=== PATIENT | female | born 1990 | race Caucasian/White ===

== ENCOUNTER 2017-01-10 15:36 | Emergency (ER) | payer MEDICAID ==
[2017-01-10 15:59] VITALS: BP 114/78
--- NOTE | 2017-01-10 16:31 | EDM.PDOC ---
ED HPI Skin/Rash - General Chief Complaint: Skin Complaint Stated Complaint: Skin blisters Time Seen by Provider: 01/10/17 16:10 Source: Reports: Patient, RN notes reviewed History Limitations: Reports: No limitations - History of Present Illness INITIAL COMMENTS - FREE TEXT/NARRATIVE: 26 year old female presents to the ED with swelling of the lower lip and blisters. The lip is very painful. The symptoms started yesterday. She has a history of cold sores and has been using abreva with no relief. She also reports spending a lot of time in the sun and wind over the past couple days. There is no involvement of the upper lip. The sores seemed to start on one side of the lip and travel across to the other side. No fever or chills. No recent illness or additional concerns. - Related Data Allergies Allergy/AdvReac Type Severity Reaction Status Date / Time No Known Allergies Allergy Verified 01/10/17 15:56 Home Meds: Ambulatory Orders Medication Instructions Recorded Confirmed Cholecalciferol (Vitamin D3) 5,000 unit PO DAILY 01/10/17 01/10/17 [Vitamin D3] Mupirocin Calcium [Bactroban] 1 applic TP TID #1 tube 01/10/17 Naproxen 500 mg PO BID PRN #20 tablet 01/10/17 Sertraline HCl [Zoloft] 150 mg PO DAILY 01/10/17 01/10/17 valACYclovir [Valtrex] 2,000 mg PO Q12H #4 tab 01/10/17 Past Medical History HEENT History: Reports: Impaired vision Other HEENT History: wears glasses Musculoskeletal History: Reports: Other (see below) Other Musculoskeletal History: MS Neurological History: Reports: MS Psychiatric History: Reports: Depression Social & Family History - Family History Family Medical History: Noncontributory - Tobacco Use Smoking Status *Q: Current Every Day Smoker Years of Tobacco use: 10 Packs/Tins Daily: 0.5 - Caffeine Use Caffeine Use: Reports: Coffee, Soda - Alcohol Use Days Per Week of Alcohol Use: 0 - Recreational Drug Use Recreational Drug Use: Yes Drug Use in Last 12 Months: Yes Recreational Drug Type: Reports: Methamphetamine Recreational Drug Use Frequency: Socially Recreational Drug Last Use: Nov.08 ED ROS GENERAL - Review of Systems Review Of Systems: See Below Constitutional: Reports: no symptoms. Denies: fever, chills HEENT: Reports: Other (lower lip swelling and blisters) Respiratory: Reports: No Symptoms. Denies: Cough Cardiovascular: Reports: No symptoms ED EXAM, SKIN/RASH Exam: See Below Exam Limited By: No limitations General Appearance: alert, WD/WN, no apparent distress Ears: normal external exam, normal canal, hearing grossly normal, normal TMs Nose: normal inspection, normal mucosa Throat/Mouth: Normal oropharynx, Other (lower lip is erythematous with several fluid filled blisters noted) Head: atraumatic, normocephalic Neck: normal inspection, supple, non-tender, full range of motion. No: lymphadenopathy (L), lymphadenopathy (R) Respiratory/Chest: no respiratory distress, lungs clear Cardiovascular: regular rate, rhythm Neurological: alert, normal cognition Course - Vital Signs Last Recorded V/S: Last Vital Signs Temp 97.3 F 01/10/17 15:57 Pulse 83 01/10/17 15:57 Resp 16 01/10/17 15:57 BP 114/78 01/10/17 15:57 Pulse Ox 100 01/10/17 15:57 Departure - Departure Time of Disposition: 16:24 Disposition: Home, Self-Care 01 Condition: good Clinical Impression: Cold sore Prescriptions: Mupirocin Calcium [Bactroban] 1 applic TP TID #1 tube Naproxen 500 mg PO BID PRN #20 tablet PRN Reason: Pain valACYclovir [Valtrex] 2,000 mg PO Q12H #4 tab Instructions: Cold Sore Referrals: Iona Hernandez NP [Primary Care Provider] - Forms: ED Department Discharge Additional Instructions: Follow-up with Allyn Hernandez next week if not improved Continue Abreva Bactroban ointment 3 times a day Cold compresses as tolerated Naproxyn 500mg twice a day as needed for pain May also use Tylenol 1000mg every 8 hours in addition to Naproxyn Valacyclovir 2000mg every 12 hours for two doses.
== END 2017-01-10 16:40 | disposition home or self-care (01) ==
LOC: JD.ED 15:36
DX: S00.521A Blister (nonthermal) of lip, initial encounter (principal); F32.9 Major depressive disorder, single episode, unspecified; F17.210 Nicotine dependence, cigarettes, uncomplicated; X31.XXXA Exposure to excessive natural cold, initial encounter
CPT/HCPCS: 99282; 99283

== ENCOUNTER 2017-01-28 12:31 | Emergency (ER) | payer MEDICAID ==
[2017-01-28] MEDS ORDERED: Sodium Chloride 0.9% 10 ML Syringe FLUSH PRN (13:09)
--- NOTE | 2017-01-28 13:13 | EDM.PDOC ---
ED HPI NEURO - General Chief Complaint: Neurological Problem Stated Complaint: MS EPISODE- CAN'T FEEL LEGS Time Seen by Provider: 01/28/17 12:52 Source of Information: Reports: Patient History Limitations: Reports: No limitations - History of Present Illness INITIAL COMMENTS - FREE TEXT/NARRATIVE: Patient is a 26-year-old female with a history of MS and has not been taking any medications for the past 2 years. Patient states this morning she awoke at approximately 10:30 he noticed numbness to the anterior aspect of her upper and lower legs involving her feet bilaterally. States she is able to walk with out any help but notes the right foot is slightly turning inward. States last time she had a flare up was approximately one year ago. Patient received IV Solu- Medrol in the ED and outpatient. States she's had a mild headache with some nausea for the past few days. Patient was outside yesterday throwing tires for extended period of time. Patient states she did get hot and believes this may have aggravated her MS. She did see her neurologist one month ago and had MRI and antibodies recheck this past Saturday to which she can start taking her MS medications again. Of note patient does have a history of IV meth use. She was hospitalized approximately 3 months ago for MRSA infection. Patient states she's been clean for the past 8 to 12 days. She is being evaluated in [place] at the [facility] for therapy this coming Saturday. Patient does have chronic blurriness to her left eye and denies recent changes. She denies any fever, chest pain, shortness breath, vomiting, abdominal pain, pain with urination, or any additional complaints. Timing/Duration: Reports: Constant, Getting worse Location (Neuro Complaint): Reports: lower extremity, left, lower extremity, right Quality (Neuro Complaint): Reports: numbness, tingling, weakness, altered gait. Denies: altered sensation, altered speech Severity: mild Improves with: Reports: Medication (solumedrol) Worsens with: Reports: Other (heat exacerbation) Associated Symptoms: Reports: weakness, nausea/vomiting (mild nausea). Denies: shortness of breath, chest pain, cough, sputum, fever/chills, loss of appetite Treatments BAGGAGE INSPECTOR: Reports: Other (see below) (none stated) - Related Data Allergies/ADRs: Allergies Allergy/AdvReac Type Severity Reaction Status Date / Time No Known Allergies Allergy Verified 01/28/17 12:42 Home Meds: Home Meds Cholecalciferol (Vitamin D3) [Vitamin D3] 5,000 unit PO DAILY 01/10/17 [History] Sertraline HCl [Zoloft] 150 mg PO DAILY 01/10/17 [History] Past Medical History HEENT History: Reports: Impaired vision Other HEENT History: wears glasses Musculoskeletal History: Reports: Other (see below) Other Musculoskeletal History: MS Neurological History: Reports: MS Psychiatric History: Reports: Depression Social & Family History - Family History Family Medical History: Noncontributory - Tobacco Use Smoking Status *Q: Current Every Day Smoker Years of Tobacco use: 10 Packs/Tins Daily: 0.5 - Caffeine Use Caffeine Use: Reports: Coffee, Soda - Alcohol Use Days Per Week of Alcohol Use: 0 - Recreational Drug Use Recreational Drug Use: Yes Drug Use in Last 12 Months: Yes Recreational Drug Type: Reports: Marijuana/Hashish Recreational Drug Use Frequency: Socially Recreational Drug Last Use: Nov.08 ED ROS GENERAL - Review of Systems Review Of Systems: See Below Constitutional: Reports: weakness. Denies: fever, chills, malaise, fatigue, decreased appetite HEENT: Reports: No symptoms Respiratory: Reports: No Symptoms Cardiovascular: Reports: No symptoms GI/Abdominal: Reports: Nausea. Denies: Abdominal pain, Constipation, Diarrhea, Distension, Flatus, Vomiting : Reports: no symptoms Musculoskeletal: Reports: no symptoms Neurological: Reports: Numbness, Tingling (lower extremities bilaterally), Weakness, Gait Disturbance ED EXAM, NEURO - Physical Exam Exam: See Below Exam Limited By: No limitations General Appearance: alert, WD/WN, no apparent distress Eye Exam: bilateral eye: EOMI, PERRL Ears: hearing grossly normal Nose: normal inspection Throat/Mouth: Normal inspection, Normal oropharynx, Normal voice, No airway compromise Head Exam: atraumatic, normocephalic Neck: normal inspection, supple, non-tender, full range of motion. No: lymphadenopathy (L), lymphadenopathy (R) Respiratory/Chest: no respiratory distress, lungs clear, normal breath sounds, no accessory muscle use, chest non-tender Cardiovascular: normal peripheral pulses, regular rate, rhythm, no murmur GI/Abdominal: normal bowel sounds, soft, non tender, no organomegaly, no distention, no abnormal bruit, no mass Neurological: alert, normal mood/affect, CN II-XII intact, no motor/sensory deficits, oriented x 3, other (weakness noted bilaterally dorsiflexion/plantar flexion, flexion of lower legs. ). No: normal dorsiflexion, normal plantar flexion Back Exam: normal inspection Extremities: normal inspection, normal range of motion, non-tender, no pedal edema, normal capillary refill Psychiatric: normal affect, normal mood Skin Exam: Warm, Dry, Intact, Normal color, No rash Course - Vital Signs Last Recorded V/S: Last Vital Signs Temp 97.9 F 01/28/17 12:43 Pulse 77 01/28/17 16:45 Resp 18 01/28/17 16:45 BP 115/66 01/28/17 16:45 Pulse Ox 100 01/28/17 16:45 - Orders/Labs/Meds Orders: Active Orders 24 hr Category Date Time Status Peripheral IV Care [RC] . DIRECTED Care 01/28/17 13:09 Active Peripheral IV Insertion Adult [OM.PC] Stat Oth 01/28/17 13:09 Ordered Labs: Laboratory Tests 01/28/17 01/28/17 01/28/17 Range/Units 13:47 13:47 13:47 WBC 6.90 (3.98-10.04) K/mm3 RBC 4.94 (3.98-5.22) M/mm3 Hgb 14.6 (11.2-15.7) gm/L Hct 43.7 (34.1-44.9) % MCV 88.5 (79.4-94.8) fl MCH 29.6 (25.6-32.2) pg MCHC 33.4 (32.2-35.5) g/dl RDW Std Deviation 43.4 (36.4-46.3) fL Plt Count 281 (182-369) K/mm3 MPV 10.8 (9.4-12.3) fl Neut % (Auto) 54.0 (34.0-71.1) % Lymph % (Auto) 33.9 (19.3-51.7) % [place] % (Auto) 9.9 (4.7-12.5) % Eos % (Auto) 1.7 (0.7-5.8) Baso % (Auto) 0.4 (0.1-1.2) % Neut # (Auto) 3.72 (1.56-6.13) K/mm3 Lymph # (Auto) 2.34 (1.18-3.74) K/mm3 [place] # (Auto) 0.68 H (0.24-0.36) K/mm3 Eos # (Auto) 0.12 (0.04-0.36) K/mm3 Baso # (Auto) 0.03 (0.01-0.08) K/mm3 Sodium 138 (136-145) mEq/L Potassium 4.1 (3.5-5.1) mEq/L Chloride 104 (98-107) mEq/L Carbon Dioxide 27 (21-32) mEq/L Anion Gap 11.1 (5-15) BUN 11 (7-18) mg/dL Creatinine 0.9 (0.55-1.02) mg/dL Est Cr Clr Drug Dosing TNP Estimated GFR (MDRD) > 60 (>60) mL/min BUN/Creatinine Ratio 12.2 L (14-18) Glucose 91 (74-106) mg/dL Calcium 9.0 (8.5-10.1) mg/dL Total Bilirubin 0.3 (0.2-1.0) mg/dL AST 16 (15-37) U/L ALT 18 (14-59) U/L Alkaline Phosphatase 86 (46-116) U/L Total Protein 7.1 (6.4-8.2) g/dl Albumin 3.8 (3.4-5.0) g/dl Globulin 3.3 gm/dL Albumin/Globulin Ratio 1.2 (1-2) HCG, Qual Negative (NEGATIVE) Urine Color (Yellow) Urine Appearance (Clear) Urine pH (5.0-8.0) Ur Specific [place] (1.005-1.030) Urine Protein (Negative) Urine Glucose (UA) (Negative) Urine Ketones (Negative) Urine Occult Blood (Negative) Urine Nitrite (Negative) Urine Bilirubin (Negative) Urine Urobilinogen (0.2-1.0) Ur Leukocyte Esterase (Negative) Urine RBC (0-5) /hpf Urine WBC (0-5) /hpf Ur Epithelial Cells Ur Squamous Epith Cells (0-5) /hpf Urine Bacteria (FEW) /hpf Urine Mucus (FEW) /hpf Urine Opiates Screen (NEGATIVE) Ur Buprenorphine Scrn (NEGATIVE) Ur Oxycodone Screen (NEGATIVE) Urine Methadone Screen (NEGATIVE) Ur Propoxyphene Screen (NEGATIVE) Ur Barbiturates Screen (NEGATIVE) Ur Tricyclics Screen (NEGATIVE) Ur Phencyclidine Scrn (NEGATIVE) Ur Amphetamine Screen (NEGATIVE) U Methamphetamines Scrn (NEGATIVE) U Benzodiazepines Scrn (NEGATIVE) U Cocaine Metab Screen (NEGATIVE) U Marijuana (THC) Screen (NEGATIVE) 01/28/17 01/28/17 Range/Units 13:55 13:55 WBC (3.98-10.04) K/mm3 RBC (3.98-5.22) M/mm3 Hgb (11.2-15.7) gm/L Hct (34.1-44.9) % MCV (79.4-94.8) fl MCH (25.6-32.2) pg MCHC (32.2-35.5) g/dl RDW Std Deviation (36.4-46.3) fL Plt Count (182-369) K/mm3 MPV (9.4-12.3) fl Neut % (Auto) (34.0-71.1) % Lymph % (Auto) (19.3-51.7) % [place] % (Auto) (4.7-12.5) % Eos % (Auto) (0.7-5.8) Baso % (Auto) (0.1-1.2) % Neut # (Auto) (1.56-6.13) K/mm3 Lymph # (Auto) (1.18-3.74) K/mm3 [place] # (Auto) (0.24-0.36) K/mm3 Eos # (Auto) (0.04-0.36) K/mm3 Baso # (Auto) (0.01-0.08) K/mm3 Sodium (136-145) mEq/L Potassium (3.5-5.1) mEq/L Chloride (98-107) mEq/L Carbon Dioxide (21-32) mEq/L Anion Gap (5-15) BUN (7-18) mg/dL Creatinine (0.55-1.02) mg/dL Est Cr Clr Drug Dosing Estimated GFR (MDRD) (>60) mL/min BUN/Creatinine Ratio (14-18) Glucose (74-106) mg/dL Calcium (8.5-10.1) mg/dL Total Bilirubin (0.2-1.0) mg/dL AST (15-37) U/L ALT (14-59) U/L Alkaline Phosphatase (46-116) U/L Total Protein (6.4-8.2) g/dl Albumin (3.4-5.0) g/dl Globulin gm/dL Albumin/Globulin Ratio (1-2) HCG, Qual (NEGATIVE) Urine Color Light yellow (Yellow) Urine Appearance Clear (Clear) Urine pH 7.0 (5.0-8.0) Ur Specific [place] 1.015 (1.005-1.030) Urine Protein Negative (Negative) Urine Glucose (UA) Negative (Negative) Urine Ketones Negative (Negative) Urine Occult Blood Negative (Negative) Urine Nitrite Negative (Negative) Urine Bilirubin Negative (Negative) Urine Urobilinogen 0.2 (0.2-1.0) Ur Leukocyte Esterase Negative (Negative) Urine RBC Not seen (0-5) /hpf Urine WBC 0-5 (0-5) /hpf Ur Epithelial Cells Not Reportable Ur Squamous Epith Cells 5-10 H (0-5) /hpf Urine Bacteria Few (FEW) /hpf Urine Mucus Not seen (FEW) /hpf Urine Opiates Screen Negative (NEGATIVE) Ur Buprenorphine Scrn Negative (NEGATIVE) Ur Oxycodone Screen Negative (NEGATIVE) Urine Methadone Screen Negative (NEGATIVE) Ur Propoxyphene Screen Negative (NEGATIVE) Ur Barbiturates Screen Negative (NEGATIVE) Ur Tricyclics Screen Negative (NEGATIVE) Ur Phencyclidine Scrn Negative (NEGATIVE) Ur Amphetamine Screen Presumptive positive H (NEGATIVE) U Methamphetamines Scrn Presumptive positive H (NEGATIVE) U Benzodiazepines Scrn Negative (NEGATIVE) U Cocaine Metab Screen Negative (NEGATIVE) U Marijuana (THC) Screen Negative (NEGATIVE) Meds: Medications Discontinued Medications Generic Name Dose Route Start Last Admin Trade Name Freq PRN Reason Stop Dose Admin Sodium Chloride 1,000 mls @ 75 mls/hr 01/28/17 13:15 01/28/17 13:59 Normal Saline IV 75 mls/hr ASDIRECTED AR[place]IO Administration Methylprednisolone Sodium 250 mls @ 250 mls/hr 01/28/17 15:00 01/28/17 14:55 Succinate 1,000 mg/ Sodium IV 01/28/17 15:59 250 mls/hr Chloride ONETIME ONE Administration Methylprednisolone Sodium Succinate 1,000 mg 01/29/17 14:18 Solu-Medrol IV 01/29/17 14:19 DAILY ONE Sodium Chloride 10 ml 01/28/17 13:09 01/28/17 14:01 Saline Flush FLUSH 10 ml ASDIRECTED PRN Administration Keep Vein Open - Re-Assessments/Exams Free Text/Narrative Re-Assessment/Exam: 01/28/17 13:14 Ordered a peripheral IV with NS. Patient has a history of recent hospitalization secondary to IV meth use. Will obtain CBC, chem 14, UA, and urine drug tox, and HCG. 01/28/17 14:07 1407 [place] One call. Discussed patient with Dr. Edgar personal financial representative Neurologists. Suggest 1 gram solumedrol here in the E.D. with additional 1 gram IV for two days outpatient. Request repeat MRI with and wo contrast. Have patient followup with in one week with neurologists at [facility]. Will start solumedrol 1 gram IV. Awaiting results of labs. 01/28/17 14:57 labs reviewed CBC, chem 14, UA were essentially normal. HCG was negative. Urine drug tox positive for methamphetamines and amphetamines. Patient states she has not utilize methamphetamines for almost 2 weeks. 01/28/17 15:08 Patient admitted to methamphetamine use 2 days ago the IV. She did not want her mother to hear that she is using again. States she will be able to withhold from meth use until evaluated Saturday. Will discharge patient home with instructions as documented. Outpatient infusion of Solu-Medrol 1 g x2 and also MRI of the brain with/without contrast will be obtained. 01/28/17 16:51 IV was removed prior to discharging patient from the E.D. Could not leave IV in place since she has history of IV drug use two days ago. Departure - Departure Time of Disposition: 16:31 Disposition: Home, Self-Care 01 Condition: fair Clinical Impression: Methamphetamine addiction, Multiple sclerosis Instructions: Stimulant Use Disorder-Amphetamines, Multiple Sclerosis Referrals: Iona Hernandez NP [Primary Care Provider] - Forms: ED Department Discharge Additional Instructions: You will need two additional IV infusions of Solumedrol 1gram over the next two days. As well MRI of the brain with and without contrast is required per Neurologists with [facility] within the next few days and reevaluation in one week with your neurologists. Refrain from recreational drugs and any other aggravating factors for MS. Return to the E.D. for any new or worsening symptoms. - My Orders Last 24 Hours: My Active Orders 01/28/17 13:09 Peripheral IV Care [RC] . DIRECTED Peripheral IV Insertion Adult [OM.PC] Stat - Assessment/Plan Last 24 Hours: My Active Orders 01/28/17 13:09 Peripheral IV Care [RC] . DIRECTED Peripheral IV Insertion Adult [OM.PC] Stat
[2017-01-28] MEDS ORDERED: Sodium Chloride 0.9% 1,000 ML IV SCH (13:15)
[2017-01-28] MEDS ORDERED: METHYLPREDNISOLONE SOD SUCC IV ONE (15:00)
[2017-01-28] MEDS ORDERED: SODIUM CHLORIDE 0.9% IV ONE (15:00)
[2017-01-28 17:05] VITALS: BP 115/66
[2017-01-29] MEDS ORDERED: methylPREDNISolone Sodium Succinate 125 MG/2 ML SDV IV ONE (14:18)
== END 2017-01-28 16:45 | disposition home or self-care (01) ==
LOC: JD.ED 12:31
DX: G35 Multiple sclerosis (principal); F15.20 Other stimulant dependence, uncomplicated; F32.9 Major depressive disorder, single episode, unspecified; F17.210 Nicotine dependence, cigarettes, uncomplicated; Z79.899 Other long term (current) drug therapy
CPT/HCPCS: 36415; 80053; 80306; 81001; 84703; 85025; 96361; 96365; 99284; J2930; J7040; J7050

== ENCOUNTER 2017-05-05 12:45 | Emergency (ER) | payer MEDICAID ==
[2017-05-05 13:06] VITALS: BP 115/66
[2017-05-05] MEDS ORDERED: Acetaminophen 325 MG Tab PO ONE (13:23)
--- NOTE | 2017-05-05 13:28 | EDM.PDOC ---
ED HPI GENERAL MEDICAL PROBLEM - General Chief Complaint: Genitourinary Problem Stated Complaint: KIDNEY PAIN Time Seen by Provider: 05/05/17 13:09 Source of Information: Reports: Patient History Limitations: Reports: No Limitations - History of Present Illness INITIAL COMMENTS - FREE TEXT/NARRATIVE: Patient is a 26-year-old female who presents to the ED complaining of bilateral kidney pain. Patient states this started yesterday and has progressively gotten worse. She states right is greater than left. She describes the sensation as a achy type pain increased with moving decreased with lying down. Has a previous history of similar symptoms related to a urinary tract infection. Patient states she's also been constipated for the past 2 days. Last bowel movement was yesterday described as formed and soft with no blood present. She questions blood within her urine. Currently she is on her menstrual cycle to which denies any abnormalities except for this is her fourth of the month. She relates this to increased stress. She is on no control. She is not sexually active and states there is no chance of being . She has been drinking plenty of fluids and has a good appetite. Of note patient has a history of methamphetamine use, MS, anxiety, and self cutting. She recently completed inpatient treatment for methamphetamine use and states she's been completely clean from recreational drugs and alcohol. She currently resides with a friend here in [place]. She smokes approximately half pack to a pack daily. Bilateral Back Pain Score (Numeric/FACES): 8 - Related Data Allergies Allergy/AdvReac Type Severity Reaction Status Date / Time No Known Allergies Allergy Verified 05/05/17 13:01 Home Meds: Home Meds . [No Known Home Meds] 05/05/17 [History] Past Medical History HEENT History: Reports: Impaired Vision Other HEENT History: wears glasses Genitourinary History: Reports: UTI, Recurrent Musculoskeletal History: Reports: Other (See Below) Other Musculoskeletal History: MS Neurological History: Reports: MS Psychiatric History: Reports: Depression Social & Family History - Family History Family Medical History: Noncontributory - Tobacco Use Smoking Status *Q: Current Every Day Smoker Years of Tobacco use: 13 Packs/Tins Daily: 0.5 - Caffeine Use Caffeine Use: Reports: Coffee, Soda - Alcohol Use Days Per Week of Alcohol Use: 0 - Recreational Drug Use Recreational Drug Use: Yes Drug Use in Last 12 Months: Yes Recreational Drug Type: Reports: Methamphetamine Recreational Drug Use Frequency: Socially Recreational Drug Last Use: Nov.08 ED ROS GENERAL - Review of Systems Review Of Systems: ROS reveals no pertinent complaints other than HPI. ED EXAM, RENAL/ - Physical Exam Exam: See Below Exam Limited By: No Limitations General Appearance: Alert, WD/WN, No Apparent Distress Ears: Hearing Grossly Normal Nose: Normal Inspection Throat/Mouth: Normal Voice, No Airway Compromise Neck: Normal Inspection, Supple Respiratory/Chest: No Respiratory Distress, Lungs Clear, Normal Breath Sounds, No Accessory Muscle Use Cardiovascular: Normal Peripheral Pulses, Regular Rate, Rhythm GI/Abdominal: Normal Bowel Sounds, Soft, Non-Tender, No Organomegaly, No Distention (Female) Exam: Deferred, Vaginal Bleeding (Currently on her menstrual cycle) . No: Vaginal Discharge Rectal (Female) Exam: Deferred Back Exam: Normal Inspection. No: CVA Tenderness (L), CVA Tenderness (R) Extremities: Normal Inspection Neurological: Alert, Oriented, CN II-XII Intact, Normal Cognition, No Motor/ Sensory Deficits Psychiatric: Normal Affect, Normal Mood Skin Exam: Warm, Dry, Intact, Normal Color Course - Vital Signs Last Recorded V/S: Last Vital Signs Temp 96.4 F 05/05/17 13:02 Pulse 79 05/05/17 13:02 Resp 16 05/05/17 13:02 BP 115/66 05/05/17 13:02 Pulse Ox 99 05/05/17 13:02 - Orders/Labs/Meds Labs: Laboratory Tests 05/05/17 05/05/17 05/05/17 Range/Units 13:30 13:30 13:50 WBC 8.80 (3.98-10.04) K/mm3 RBC 4.58 (3.98-5.22) M/mm3 Hgb 14.1 (11.2-15.7) gm/L Hct 42.3 (34.1-44.9) % MCV 92.4 (79.4-94.8) fl MCH 30.8 (25.6-32.2) pg MCHC 33.3 (32.2-35.5) g/dl RDW Std Deviation 44.4 (36.4-46.3) fL Plt Count 297 (182-369) K/mm3 MPV 10.4 (9.4-12.3) fl Neut % (Auto) 65.4 (34.0-71.1) % Lymph % (Auto) 26.7 (19.3-51.7) % Trinity % (Auto) 5.5 (4.7-12.5) % Eos % (Auto) 1.6 (0.7-5.8) Baso % (Auto) 0.5 (0.1-1.2) % Neut # (Auto) 5.76 (1.56-6.13) K/mm3 Lymph # (Auto) 2.35 (1.18-3.74) K/mm3 Trinity # (Auto) 0.48 H (0.24-0.36) K/mm3 Eos # (Auto) 0.14 (0.04-0.36) K/mm3 Baso # (Auto) 0.04 (0.01-0.08) K/mm3 Sodium (136-145) mEq/L Potassium (3.5-5.1) mEq/L Chloride (98-107) mEq/L Carbon Dioxide (21-32) mEq/L Anion Gap (5-15) BUN (7-18) mg/dL Creatinine (0.55-1.02) mg/dL Est Cr Clr Drug Dosing mL/min Estimated GFR (MDRD) (>60) mL/min BUN/Creatinine Ratio (14-18) Glucose (74-106) mg/dL Calcium (8.5-10.1) mg/dL Total Bilirubin (0.2-1.0) mg/dL AST (15-37) U/L ALT (14-59) U/L Alkaline Phosphatase (46-116) U/L C-Reactive Protein (<1.0) mg/dL Total Protein (6.4-8.2) g/dl Albumin (3.4-5.0) g/dl Globulin gm/dL Albumin/Globulin Ratio (1-2) Urine Color Yellow (Yellow) Urine Appearance Clear (Clear) Urine pH 7.5 (5.0-8.0) Ur Specific Watson 1.025 (1.005-1.030) Urine Protein Negative (Negative) Urine Glucose (UA) Negative (Negative) Urine Ketones Negative (Negative) Urine Occult Blood Negative (Negative) Urine Nitrite Negative (Negative) Urine Bilirubin Negative (Negative) Urine Urobilinogen 0.2 (0.2-1.0) Ur Leukocyte Esterase Negative (Negative) Urine RBC 0-5 (0-5) /hpf Urine WBC 0-5 (0-5) /hpf Ur Epithelial Cells 0-5 (0-5) /hpf Urine Bacteria Moderate H (FEW) /hpf Urine Mucus Few (FEW) /hpf Urine HCG, Qual Negative (NEGATIVE) 05/05/17 Range/Units 13:50 WBC (3.98-10.04) K/mm3 RBC (3.98-5.22) M/mm3 Hgb (11.2-15.7) gm/L Hct (34.1-44.9) % MCV (79.4-94.8) fl MCH (25.6-32.2) pg MCHC (32.2-35.5) g/dl RDW Std Deviation (36.4-46.3) fL Plt Count (182-369) K/mm3 MPV (9.4-12.3) fl Neut % (Auto) (34.0-71.1) % Lymph % (Auto) (19.3-51.7) % Trinity % (Auto) (4.7-12.5) % Eos % (Auto) (0.7-5.8) Baso % (Auto) (0.1-1.2) % Neut # (Auto) (1.56-6.13) K/mm3 Lymph # (Auto) (1.18-3.74) K/mm3 Trinity # (Auto) (0.24-0.36) K/mm3 Eos # (Auto) (0.04-0.36) K/mm3 Baso # (Auto) (0.01-0.08) K/mm3 Sodium 140 (136-145) mEq/L Potassium 3.9 (3.5-5.1) mEq/L Chloride 107 (98-107) mEq/L Carbon Dioxide 29 (21-32) mEq/L Anion Gap 7.9 (5-15) BUN 13 (7-18) mg/dL Creatinine 1.0 (0.55-1.02) mg/dL Est Cr Clr Drug Dosing 84.36 mL/min Estimated GFR (MDRD) > 60 (>60) mL/min BUN/Creatinine Ratio 13.0 L (14-18) Glucose 97 (74-106) mg/dL Calcium 8.8 (8.5-10.1) mg/dL Total Bilirubin 0.2 (0.2-1.0) mg/dL AST 14 L (15-37) U/L ALT 21 (14-59) U/L Alkaline Phosphatase 69 (46-116) U/L C-Reactive Protein < 0.2 (<1.0) mg/dL Total Protein 6.8 (6.4-8.2) g/dl Albumin 3.8 (3.4-5.0) g/dl Globulin 3.0 gm/dL Albumin/Globulin Ratio 1.3 (1-2) Urine Color (Yellow) Urine Appearance (Clear) Urine pH (5.0-8.0) Ur Specific Watson (1.005-1.030) Urine Protein (Negative) Urine Glucose (UA) (Negative) Urine Ketones (Negative) Urine Occult Blood (Negative) Urine Nitrite (Negative) Urine Bilirubin (Negative) Urine Urobilinogen (0.2-1.0) Ur Leukocyte Esterase (Negative) Urine RBC (0-5) /hpf Urine WBC (0-5) /hpf Ur Epithelial Cells (0-5) /hpf Urine Bacteria (FEW) /hpf Urine Mucus (FEW) /hpf Urine HCG, Qual (NEGATIVE) Meds: Medications Discontinued Medications Generic Name Dose Route Start Last Admin Trade Name Isaelq PRN Reason Stop Dose Admin Acetaminophen 975 mg 05/05/17 13:23 05/05/17 13:35 Tylenol PO 05/05/17 13:24 975 mg NOW ONE Administration - Re-Assessments/Exams Free Text/Narrative Re-Assessment/Exam: Will obtain basic labs including CBC, CRP, chem 14, UA, and hCG. Ordered Tylenol 975 mg by mouth now. 05/05/17 14:59 Labs reviewed: CBC, chem 14, UA were essentially normal. HCG negative. KUB reviewed with Dr. Christopher, no acute findings noted. Copious amounts of stool present. Tampon in place. Discussed findings with patient. Will discharge home with instructions as documented. Departure - Departure Time of Disposition: 15:36 Disposition: Home, Self-Care 01 Clinical Impression: Abnormal menses Back pain Qualifiers: Back pain location: low back pain Chronicity: acute Back pain laterality: bilateral Sciatica presence: without sciatica Qualified Code(s): M54.5 - Low back pain Constipation Qualifiers: Constipation type: unspecified constipation type Qualified Code(s): K59.00 - Constipation, unspecified - Discharge Information Instructions: Constipation, Adult, Back Pain, Adult, [id number] Referrals: Iona Hernandez NP [Primary Care Provider] - Forms: ED Department Discharge Additional Instructions: Blood work, UA, and KUB did not reveal any concerning findings. KUB did reveal copious amounts of stool within the colon. Subsequently I believe you're constipated. Will have you take one capful of MiraLAX every day with copious amounts of water. Increase your fiber intake and exercise. Follow-up with PCP in one week to ensure symptoms are improving and for further evaluation of abnormal menses. Return to ED as needed for any new or worsening symptoms.
--- NOTE | 2017-05-05 17:29 | CR ---
Abdomen: Supine view of the abdomen was obtained. Comparison: No previous abdominal study. Bowel gas pattern appears within normal limits. No abnormal calcifications or discrete soft tissue abnormality is identified. Bony structures are unremarkable. Pression: 1. No abnormality is seen on supine abdominal x-ray. Diagnostic code #1
== END 2017-05-05 16:16 | disposition home or self-care (01) ==
LOC: JD.ED 12:45
DX: K59.00 Constipation, unspecified (principal); N92.6 Irregular menstruation, unspecified; M54.5 Low back pain; F17.210 Nicotine dependence, cigarettes, uncomplicated; Z87.440 Personal history of urinary (tract) infections
CPT/HCPCS: 36415; 74000; 80053; 81001; 81025; 85025; 86140; 99284; A9270; 99282

== ENCOUNTER 2017-05-11 19:33 | Emergency (ER) | payer MEDICAID ==
[2017-05-11 19:44] VITALS: BP 120/70
[2017-05-11] MEDS ORDERED: Diphtheria,Pertussis(Acell),Tetanus Vaccine 0.5 ML SDV IM ONE (20:01)
--- NOTE | 2017-05-11 20:44 | EDM.PDOC ---
ED HPI GENERAL MEDICAL PROBLEM - General Chief Complaint: Burn Stated Complaint: BURNED HAND Time Seen by Provider: 05/11/17 19:34 Source of Information: Reports: Patient, Family History Limitations: Reports: No Limitations - History of Present Illness INITIAL COMMENTS - FREE TEXT/NARRATIVE: This is a 26-year-old female. She was cooking garcia this evening and some of the grease splashed up on her right thumb. She has a second-degree burn to her right thumb. She denies any other injury she is not up-to-date with her tetanus. She did not splashed herself anyplace else and no other hand burn is noted. Right 1-Thumb Pain Score (Numeric/FACES): 10 - Related Data Allergies Allergy/AdvReac Type Severity Reaction Status Date / Time No Known Allergies Allergy Verified 05/11/17 19:44 Home Meds: Home Meds . [No Known Home Meds] 05/05/17 [History] Past Medical History HEENT History: Reports: Impaired Vision Other HEENT History: wears glasses Genitourinary History: Reports: UTI, Recurrent Musculoskeletal History: Reports: Other (See Below) Other Musculoskeletal History: MS Neurological History: Reports: MS Psychiatric History: Reports: Depression Social & Family History - Family History Family Medical History: Noncontributory - Tobacco Use Smoking Status *Q: Unknown Ever Smoked Years of Tobacco use: 13 Packs/Tins Daily: 0.5 - Caffeine Use Caffeine Use: Reports: Coffee, Soda - Alcohol Use Days Per Week of Alcohol Use: 0 - Recreational Drug Use Recreational Drug Use: Yes Drug Use in Last 12 Months: Yes Recreational Drug Type: Reports: Methamphetamine Recreational Drug Use Frequency: Socially Recreational Drug Last Use: Nov.08 ED ROS GENERAL - Review of Systems Review Of Systems: See Below Constitutional: Denies: Fever, Chills HEENT: Reports: No Symptoms Respiratory: Reports: No Symptoms Cardiovascular: Reports: No Symptoms Endocrine: Reports: No Symptoms GI/Abdominal: Reports: No Symptoms : Reports: No Symptoms Musculoskeletal: Reports: No Symptoms Skin: Reports: Other (As per history of present illness) Neurological: Reports: No Symptoms Psychiatric: Reports: No Symptoms Hematologic/Lymphatic: Reports: No Symptoms ED EXAM, BURN/SMOKE INHALATION - Physical Exam Exam: See Below Exam Limited By: No Limitations General Appearance: Alert, WD/WN Ears (Abbreviated): Normal External Exam Mouth/Throat: No Symptoms Reported Head: No Symptoms Neck: No Symptoms Respiratory: No Respiratory Distress Back Exam: Full Range of Motion Extremities: Normal Range of Motion, Other (The right thumb has a 1.5 x 4 cm second degree burn on the radial side extending from the MP joint just past the IP joint, the blister is broken and was debrided, no other beltrán are noted she has full function of the thumb and fingers, neurovascular is intact distally) Neurological: Alert, Oriented Psychiatric: Normal Affect, Normal Mood Skin Exam: Warm, Dry ED PROCEDURES - Laceration/Wound Repair Right Hand Progress/Comments: The burn on her right thumb is about 1.5 cm by about 4 cm involving the radial side of the thumb and the proximal phalanx up to the IP joint. I debrided the broken second degree blister from the area to open it up so it will not get infected, bacitracin ointment and Telfa and a dressing were placed. The patient did receive a tetanus shot Course - Vital Signs Last Recorded V/S: Last Vital Signs Temp 98.5 F 05/11/17 19:39 Pulse 89 05/11/17 19:39 Resp 18 05/11/17 19:39 BP 120/70 05/11/17 19:39 Pulse Ox 98 05/11/17 19:39 - Orders/Labs/Meds Orders: Active Orders 24 hr Category Date Time Status Vaccines to be Administered [RC] PER UNIT ROUTINE Care 05/11/17 20:01 Active Meds: Medications Discontinued Medications Generic Name Dose Route Start Last Admin Trade Name Freq PRN Reason Stop Dose Admin Diphtheria/Tetanus/Acell Pertussis 0.5 ml 05/11/17 20:01 05/11/17 20:30 Adacel IM 05/11/17 20:02 0.5 ml .ONCE ONE Administration Departure - Departure Time of Disposition: 20:41 Disposition: Home, Self-Care 01 Condition: Good Clinical Impression: Burn of thumb, right, second degree Qualifiers: Encounter type: initial encounter Qualified Code(s): T23.211A - Burn of second degree of right thumb (nail), initial encounter - Discharge Information Referrals: Iona Hernandez NP [Primary Care Provider] - Forms: ED Department Discharge, ED Return to Work/School Form Additional Instructions: Keep the burn covered at home and at work, when you get in the shower don't let the shower hit the burn because it'll be painful but used gentle soap and water to keep it clean, take Tylenol Aleve or ibuprofen as needed for the soreness and pain, you may use that thumb that it will be tender, you may return to work , follow-up with your family doctor this week for recheck - My Orders Last 24 Hours: My Active Orders 05/11/17 20:01 Vaccines to be Administered [RC] PER UNIT ROUTINE - Assessment/Plan Last 24 Hours: My Active Orders 05/11/17 20:01 Vaccines to be Administered [RC] PER UNIT ROUTINE
== END 2017-05-11 20:55 | disposition home or self-care (01) ==
LOC: JD.ED 19:33
DX: T23.211A Burn of second degree of right thumb (nail), initial encounter (principal); X10.2XXA Contact with fats and cooking oils, initial encounter; Z23 Encounter for immunization
CPT/HCPCS: 16020; 90471; 90715; 99282; 99283-25

== ENCOUNTER 2017-08-30 09:27 | Emergency (ER) | payer MEDICAID ==
[2017-08-30 09:40] VITALS: BP 125/79
--- NOTE | 2017-08-30 10:08 | EDM.PDOC ---
ED HPI GENERAL MEDICAL PROBLEM - General Chief Complaint: ENT Problem Stated Complaint: DENTAL COMPLAINT Time Seen by Provider: 08/30/17 09:45 Source of Information: Reports: Patient, RN Notes Reviewed - History of Present Illness INITIAL COMMENTS - FREE TEXT/NARRATIVE: 26-year-old female comes in with severe dental pain. The molars of her right lower jaw are all bad but one in particular is cavitated clear down to the gumline. His been especially painful for her intermittently this past week and worse the last several days. There is hot and cold sensitivity. She states she is alternating Tylenol and ibuprofen with minimal relief. Has an appointment to see her dentist in about 12 days. Right Lower Oral/Mouth Pain Score (Numeric/FACES): 9 - Related Data Allergies Allergy/AdvReac Type Severity Reaction Status Date / Time No Known Allergies Allergy Verified 08/30/17 09:40 Home Meds: Home Meds Acetaminophen/HYDROcodone [Santaquin 325-5 MG] 1 tab PO Q6H PRN #20 tablet 08/30/17 [Rx] Escitalopram [Lexapro] 10 mg PO DAILY 08/30/17 [History] LORazepam 0.5 mg PO DAILY 08/30/17 [History] busPIRone HCl [busPIRone] 15 mg PO DAILY 08/30/17 [History] Past Medical History HEENT History: Reports: Impaired Vision Other HEENT History: wears glasses Genitourinary History: Reports: UTI, Recurrent Musculoskeletal History: Reports: Other (See Below) Other Musculoskeletal History: MS Neurological History: Reports: MS Psychiatric History: Reports: Depression Social & Family History - Family History Family Medical History: Noncontributory - Tobacco Use Smoking Status *Q: Current Every Day Smoker Years of Tobacco use: 12 Packs/Tins Daily: 0.5 - Caffeine Use Caffeine Use: Reports: Coffee - Alcohol Use Days Per Week of Alcohol Use: 0 - Recreational Drug Use Recreational Drug Use: Yes Drug Use in Last 12 Months: Yes Recreational Drug Type: Reports: Marijuana/Hashish Recreational Drug Use Frequency: Socially Recreational Drug Last Use: Nov.08 ED ROS ENT - Review of Systems Review Of Systems: See Below Constitutional: Denies: Fever, Chills HEENT: Reports: Dental Pain Respiratory: Reports: No Symptoms Cardiovascular: Reports: No Symptoms GI/Abdominal: Denies: Abdominal Pain, Nausea, Vomiting Musculoskeletal: Reports: No Symptoms Skin: Reports: No Symptoms Neurological: Reports: No Symptoms ED EXAM, ENT - Physical Exam Exam: See Below General Appearance: Alert, Moderate Distress Mouth/Throat: Dental Pain (Severe cavitation right lower second molar, is cavitation of the first and third molars as well. No visible gum swelling, no visible drainage) Head: Other (There is tenderness of the right jaw lateral to the affected tooth but no visible swelling at this time.). No: Facial Swelling Respiratory/Chest: No Respiratory Distress Extremities: Normal Inspection Neurological: Alert, Oriented, No Motor/Sensory Deficits Skin: Warm, Dry, Normal Color Course - Vital Signs Last Recorded V/S: Last Vital Signs Temp 96.7 F 08/30/17 09:37 Pulse 80 08/30/17 09:37 Resp 16 08/30/17 09:37 BP 125/79 08/30/17 09:37 Pulse Ox 98 08/30/17 09:37 Departure - Departure Time of Disposition: 10:04 Disposition: Home, Self-Care 01 Condition: Fair Clinical Impression: Pain, dental - Discharge Information Prescriptions: Acetaminophen/HYDROcodone [Santaquin 325-5 MG] 1 tab PO Q6H PRN #20 tablet PRN Reason: Pain Instructions: Dental Caries, [id number] Referrals: Iona Hernandez NP [Primary Care Provider] - Forms: ED Department Discharge Additional Instructions: Continue Advil or ibuprofen 3-4 times daily with food, he may take Tylenol in between doses for extra pain relief or hydrocodone if if and when needed for severe pain, did not take Tylenol and hydrocodone at the same time, do not drive or work when taking hydrocodone. Amoxicillin 1000 mg twice daily for 1 week, follow-up with your dentist as planned.
== END 2017-08-30 10:18 | disposition home or self-care (01) ==
LOC: JD.ED 09:27
DX: K08.89 Other specified disorders of teeth and supporting structures (principal); F17.210 Nicotine dependence, cigarettes, uncomplicated; F32.9 Major depressive disorder, single episode, unspecified; Z79.899 Other long term (current) drug therapy
CPT/HCPCS: 99283

== ENCOUNTER 2020-09-10 12:47 | Emergency (ER) | payer MEDICAID ==
[2020-09-10 12:59] VITALS: BP 140/104; PULSE 98
--- NOTE | 2020-09-10 13:26 | EDM.PDOC ---
ED HPI GENERAL MEDICAL PROBLEM - General Chief Complaint: ENT Problem Stated Complaint: DENTAL COMPLAINT Time Seen by Provider: 09/10/20 13:01 Source of Information: Reports: Patient History Limitations: Reports: No Limitations - History of Present Illness INITIAL COMMENTS - FREE TEXT/NARRATIVE: The patient presents with right lower jaw dental pain. She has some broken teeth in that area. She has swelling and erythema to that area. She has no fever or chills. She was supposed to see her dentist on Saturday but her dentist is and had to cancel. Onset: Gradual Duration: Day(s): Location: Reports: Other (Right lower jaw dental pain) Quality: Reports: Sharp Severity: Severe Improves with: Reports: None Worsens with: Reports: None Associated Symptoms: Reports: No Other Symptoms Treatments [employer]: Reports: NSAIDS Right Tooth/Teeth Pain Score (Numeric/FACES): 4 - Related Data Allergies Allergy/AdvReac Type Severity Reaction Status Date / Time No Known Allergies Allergy Verified 09/10/20 12:58 Home Meds: Home Meds Amphetamine/Dextroamphetamine [Adderall] 09/10/20 [History] Hydrocodone/Acetaminophen [Hydrocodone-Acetamin 5-325 mg] 1 - 2 each PO Q6HR PRN #20 tablet 09/10/20 [Rx] Levothyroxine [Synthroid] 09/10/20 [History] Penicillin V Potassium 500 mg PO Q6HR #40 tab 09/10/20 [Rx] Past Medical History HEENT History: Reports: Impaired Vision Other HEENT History: wears glasses Genitourinary History: Reports: UTI, Recurrent Musculoskeletal History: Reports: Other (See Below) Other Musculoskeletal History: MS Neurological History: Reports: MS Psychiatric History: Reports: Depression, Mood Swings Endocrine/Metabolic History: Reports: Hypothyroidism Social & Family History - Family History Family Medical History: No Pertinent Family History - Tobacco Use Tobacco Use Status *Q: Current Every Day Tobacco User Years of Tobacco use: 11 Packs/Tins Daily: 0.5 - Caffeine Use Caffeine Use: Reports: Coffee, Energy Drinks - Recreational Drug Use Recreational Drug Use: Yes Recreational Drug Type: Reports: Marijuana/Hashish Recreational Drug Use Frequency: Not Used In Over 1 Month ED ROS ENT - Review of Systems Review Of Systems: See Below Constitutional: Reports: No Symptoms HEENT: Reports: Other (right lower jaw pain) Respiratory: Reports: No Symptoms Cardiovascular: Reports: No Symptoms Endocrine: Reports: No Symptoms GI/Abdominal: Reports: No Symptoms ED EXAM, ENT - Physical Exam Exam: See Below Exam Limited By: No Limitations General Appearance: Alert, No Apparent Distress Ears: Normal External Exam Nose: Normal Inspection Mouth/Throat: Other (erythema and edema to the right lower jaw around 1st and 2nd molars that are fractured) Course - Vital Signs Last Recorded V/S: Last Vital Signs Temp 98.0 F 09/10/20 12:55 Pulse 98 09/10/20 12:55 Resp 14 09/10/20 12:55 BP 140/104 H 09/10/20 12:55 Pulse Ox 100 09/10/20 12:55 Departure - Departure Time of Disposition: 13:25 Disposition: Home, Self-Care 01 Condition: Good Clinical Impression: Pain, dental, Dental abscess - Discharge Information *PRESCRIPTION DRUG MONITORING PROGRAM REVIEWED*: No *COPY OF PRESCRIPTION DRUG MONITORING REPORT IN PATIENT SHERWIN: No Prescriptions: Hydrocodone/Acetaminophen [Hydrocodone-Acetamin 5-325 mg] 1 - 2 each PO Q6HR PRN #20 tablet PRN Reason: Pain Penicillin V Potassium 500 mg PO Q6HR #40 tab Referrals: PCP,None [Primary Care Provider] - Additional Instructions: Take the penicillin VK 4 times per day until gone. Take tylenol or motrin for pain. If that does not help, try the hydrocodone. Follow up with a dentist in [facility]. If you cannot find a dentist in [place], I heard [facility] will work with patients. Their number is . Please return if you are worse. Sepsis Event Note (ED) - Evaluation Sepsis Screening Result: No Definite Risk - Focused Exam Vital Signs: Vital Signs Temp Pulse Resp BP Pulse Ox 09/10/20 12:55 98.0 F 98 14 140/104 H 100
== END 2020-09-10 13:45 | disposition home or self-care (01) ==
LOC: JD.ED 12:47
DX: K04.7 Periapical abscess without sinus (principal); E03.9 Hypothyroidism, unspecified; F17.210 Nicotine dependence, cigarettes, uncomplicated; Z79.899 Other long term (current) drug therapy
CPT/HCPCS: 99282; 99283

== ENCOUNTER 2020-11-01 10:06 | Emergency (ER) | payer MEDICAID ==
[2020-11-01 10:37] VITALS: BP 145/89; PULSE 79
--- NOTE | 2020-11-01 10:58 | EDM.PDOC ---
ED HPI GENERAL MEDICAL PROBLEM - General Chief Complaint: ENT Problem Stated Complaint: DENTAL COMPLAINT Time Seen by Provider: 11/01/20 10:41 Source of Information: Reports: Patient History Limitations: Reports: No Limitations - History of Present Illness INITIAL COMMENTS - FREE TEXT/NARRATIVE: The patient presents with left lower tooth pain. This started yesterday. Last month she had teeth pulled on the right with [facility]. She has no fever or chills. Onset: Gradual Duration: Day(s): (Yesterday) Location: Reports: Face Quality: Reports: Sharp Severity: Severe Improves with: Reports: None Worsens with: Reports: None Associated Symptoms: Reports: No Other Symptoms Left Lower Tooth/Teeth Pain Score (Numeric/FACES): 10 - Related Data Allergies Allergy/AdvReac Type Severity Reaction Status Date / Time No Known Allergies Allergy Verified 11/01/20 10:37 Home Meds: Home Meds Amphetamine/Dextroamphetamine [Adderall] 20 mg PO DAILY 09/10/20 [History] Levothyroxine [Synthroid] 88 mcg PO DAILY 09/10/20 [History] Fingolimod HCl [Gilenya] 0.5 mg PO DAILY 11/01/20 [History] Hydrocodone/Acetaminophen [Hydrocodone-Acetamin 5-325 mg] 1 - 2 each PO Q6HR PRN #20 tablet 11/01/20 [Rx] Penicillin V Potassium 500 mg PO Q6HR #40 tab 11/01/20 [Rx] Past Medical History HEENT History: Reports: Impaired Vision Other HEENT History: wears glasses Genitourinary History: Reports: UTI, Recurrent Musculoskeletal History: Reports: Other (See Below) Other Musculoskeletal History: MS Neurological History: Reports: MS Psychiatric History: Reports: Depression, Mood Swings Endocrine/Metabolic History: Reports: Hypothyroidism - Infectious Disease History Infectious Disease History: Reports: Chicken Pox Social & Family History - Family History Family Medical History: No Pertinent Family History - Tobacco Use Tobacco Use Status *Q: Current Every Day Tobacco User Years of Tobacco use: 10 Packs/Tins Daily: 0.5 - Caffeine Use Caffeine Use: Reports: Coffee, Soda - Recreational Drug Use Recreational Drug Use: No ED ROS ENT - Review of Systems Review Of Systems: See Below Constitutional: Reports: No Symptoms HEENT: Reports: Dental Pain Respiratory: Reports: No Symptoms Cardiovascular: Reports: No Symptoms Endocrine: Reports: No Symptoms GI/Abdominal: Reports: No Symptoms : Reports: No Symptoms ED EXAM, ENT - Physical Exam Exam: See Below Exam Limited By: No Limitations General Appearance: Alert, No Apparent Distress Ears: Normal External Exam Nose: Normal Inspection Mouth/Throat: Other (Left lower jaw dental pain) Head: Atraumatic, Normocephalic Neck: Normal Inspection Respiratory/Chest: No Respiratory Distress Course - Vital Signs Last Recorded V/S: Last Vital Signs Temp 97.5 F 11/01/20 10:33 Pulse 79 11/01/20 10:33 Resp 18 11/01/20 10:33 BP 145/89 H 11/01/20 10:33 Pulse Ox 99 11/01/20 10:33 - Orders/Labs/Meds Orders: Active Orders 24 hr Category Date Time Status Influenza Vaccine Charge [RC] .DISCHARGE Care 11/01/20 10:45 Active Flu Vacc [id number](6Mos Up)/Pf [Fluzone Quad Med 11/01/20 11:00 Once Syringe] 60 mcg IM .ONCE ONE Medication Orders Influenza Virus Vaccine (Fluzone Quad Syringe) 60 mcg IM .ONCE ONE Stop: 11/01/20 11:01 Meds: Medications Generic Name Dose Route Start Last Admin Trade Name Freq PRN Reason Stop Dose Admin Influenza Virus Vaccine 60 mcg 11/01/20 11:00 Fluzone Quad [id number] Syringe IM 11/01/20 11:01 .ONCE ONE Departure - Departure Time of Disposition: 11:00 Disposition: Home, Self-Care 01 Condition: Good Clinical Impression: Dental caries, Dental abscess, Pain, dental - Discharge Information *PRESCRIPTION DRUG MONITORING PROGRAM REVIEWED*: Not Applicable *COPY OF PRESCRIPTION DRUG MONITORING REPORT IN PATIENT SHERWIN: Not Applicable Prescriptions: Hydrocodone/Acetaminophen [Hydrocodone-Acetamin 5-325 mg] 1 - 2 each PO Q6HR PRN #20 tablet PRN Reason: Pain Penicillin V Potassium 500 mg PO Q6HR #40 tab Referrals: PCP,None [Primary Care Provider] - Additional Instructions: Take the penicillin VK 4 times per day for 10 days. Take tylenol or motrin as needed for pain. If that does not help, try the hydrocodone. Please return if you are worse. Follow up with your dentist. Sepsis Event Note (ED) - Evaluation Sepsis Screening Result: No Definite Risk - Focused Exam Vital Signs: Vital Signs Temp Pulse Resp BP Pulse Ox 11/01/20 10:33 97.5 F 79 18 145/89 H 99 - My Orders Last 24 Hours: My Active Orders 11/01/20 10:45 Influenza Vaccine Charge [RC] .DISCHARGE 11/01/20 11:00 Flu Vacc [id number](6Mos Up)/Pf [Fluzone Quad Syringe] 60 mcg IM .ONCE ONE - Assessment/Plan Last 24 Hours: My Active Orders 11/01/20 10:45 Influenza Vaccine Charge [RC] .DISCHARGE 11/01/20 11:00 Flu Vacc [id number](6Mos Up)/Pf [Fluzone Quad Syringe] 60 mcg IM .ONCE ONE
[2020-11-01] MEDS ORDERED: FLU VACC QS2020-21(6MOS UP)/PF 60 MCG/0.5 ML SYRINGE IM ONE (11:00)
== END 2020-11-01 11:30 | disposition home or self-care (01) ==
LOC: JD.ED 10:06
DX: K04.7 Periapical abscess without sinus (principal); K02.9 Dental caries, unspecified; G35 Multiple sclerosis; Z72.0 Tobacco use; E03.9 Hypothyroidism, unspecified; Z79.899 Other long term (current) drug therapy
CPT/HCPCS: 90686; 99282-25; 99283; G0008

== ENCOUNTER 2021-06-11 16:49 | Emergency (ER) | payer MEDICAID ==
[2021-06-11 17:26] VITALS: BP 146/85; PULSE 78
[2021-06-11] MEDS ORDERED: Sodium Chloride 0.9% 10 ML Syringe FLUSH PRN (17:49)
--- NOTE | 2021-06-11 19:19 | EDM.PDOC ---
ED HPI GENERAL MEDICAL PROBLEM - General Chief Complaint: Neuro Symptoms/Deficits Stated Complaint: NUMBING OF THE HANDS Time Seen by Provider: 06/11/21 17:37 Source of Information: Reports: Patient History Limitations: Reports: No Limitations - History of Present Illness INITIAL COMMENTS - FREE TEXT/NARRATIVE: The patient presents with bilateral arm numbness and pain. She has a history of MS and she feels like she is having a flair. She has no injury. She has no fever, chills, cough, chest pain, abdominal pain, nausea or vomiting. This has been going on for a few weeks. Onset: Gradual Duration: Week(s): Location: Reports: Upper Extremity, Left, Upper Extremity, Right Quality: Reports: Sharp Severity: Moderate Improves with: Reports: None Worsens with: Reports: None Associated Symptoms: Reports: No Other Symptoms Bilateral Hand Pain Score (Numeric/FACES): 7 - Related Data Allergies Allergy/AdvReac Type Severity Reaction Status Date / Time No Known Allergies Allergy Verified 06/11/21 17:26 Home Meds: Home Meds Amphetamine/Dextroamphetamine [Adderall] 20 mg PO DAILY 09/10/20 [History] Fingolimod HCl [Gilenya] 0.5 mg PO DAILY 11/01/20 [History] OLANZapine [Olanzapine] 20 mg PO DAILY 06/11/21 [History] Past Medical History HEENT History: Reports: Impaired Vision Other HEENT History: wears glasses Genitourinary History: Reports: UTI, Recurrent Musculoskeletal History: Reports: Other (See Below) Other Musculoskeletal History: MS Neurological History: Reports: MS Psychiatric History: Reports: Depression, Mood Swings Endocrine/Metabolic History: Reports: Hypothyroidism - Infectious Disease History Infectious Disease History: Reports: Chicken Pox Social & Family History - Family History Family Medical History: No Pertinent Family History - Tobacco Use Tobacco Use Status *Q: Current Every Day Tobacco User Years of Tobacco use: 13 Packs/Tins Daily: 0.5 - Caffeine Use Caffeine Use: Reports: Coffee - Recreational Drug Use Recreational Drug Use: No ED ROS GENERAL - Review of Systems Review Of Systems: See Below Constitutional: Reports: No Symptoms HEENT: Reports: No Symptoms Respiratory: Reports: No Symptoms Cardiovascular: Reports: No Symptoms Endocrine: Reports: No Symptoms GI/Abdominal: Reports: No Symptoms : Reports: No Symptoms Musculoskeletal: Reports: No Symptoms Neurological: Reports: Other (arm numbness and pain) ED EXAM, NEURO - Physical Exam Exam: See Below Exam Limited By: No Limitations General Appearance: Alert, No Apparent Distress Ears: Normal External Exam Nose: Normal Inspection Head Exam: Atraumatic, Normocephalic Neck: Normal Inspection Respiratory/Chest: No Respiratory Distress, Lungs Clear, Normal Breath Sounds Cardiovascular: Regular Rate, Rhythm, No Edema, No Murmur GI/Abdominal: Soft, Non-Tender, No Organomegaly, No Mass Neurological: Alert, Oriented x 3, Other (bilateral gross numbnes to both hands with equal strength. Good pulses.) Course - Vital Signs Last Recorded V/S: Last Vital Signs Temp 98.0 F 06/11/21 17:25 Pulse 78 06/11/21 17:25 Resp 20 06/11/21 17:25 BP 146/85 H 06/11/21 17:25 Pulse Ox 100 06/11/21 17:25 - Orders/Labs/Meds Orders: Active Orders 24 hr Category Date Time Status Peripheral IV Care [RC] . DIRECTED Care 06/11/21 17:49 Active Sodium Chloride 0.9% [Saline Flush] Med 06/11/21 17:49 Active 10 ml FLUSH ASDIRECTED PRN Peripheral IV Insertion Adult [OM.PC] Routine Oth 06/11/21 17:49 Ordered Medication Orders Sodium Chloride (Sodium Chloride 0.9% 10 Ml Syringe) 10 ml FLUSH ASDIRECTED PRN PRN Reason: Keep Vein Open Last Admin: 06/11/21 18:06 Dose: 10 ml Documented by: FAVIOLA Labs: Laboratory Tests 06/11/21 Range/Units 18:30 TSH 3rd Generation 4.673 H (0.358-3.74) uIU/mL Meds: Medications Generic Name Dose Route Start Last Admin Trade Name Freq PRN Reason Stop Dose Admin Sodium Chloride 10 ml 06/11/21 17:49 06/11/21 18:06 Sodium Chloride 0.9% 10 Ml Syringe FLUSH 10 ml ASDIRECTED PRN Administration Keep Vein Open Discontinued Medications Generic Name Dose Route Start Last Admin Trade Name Freq PRN Reason Stop Dose Admin Methylprednisolone Sodium 258 mls @ 258 mls/hr 06/11/21 17:54 06/11/21 18:06 Succinate 1,000 mg/ Sodium IV 06/11/21 17:55 258 mls/hr Chloride ONETIME ONE Administration - Re-Assessments/Exams Free Text/Narrative Re-Assessment/Exam: 06/11/21 19:19 I ordered an IV saline lock, solu-medrol 1 gram IV and a TSH. The TSH was slightly elevated at 4.673. I will have her start taking her thyroid medication and set up an order for outpatient solu-medrol 1 gram X 3 doses. Departure - Departure Time of Disposition: 19:25 Disposition: Home, Self-Care 01 Condition: Good Clinical Impression: Multiple sclerosis - Discharge Information *PRESCRIPTION DRUG MONITORING PROGRAM REVIEWED*: Not Applicable *COPY OF PRESCRIPTION DRUG MONITORING REPORT IN PATIENT SHERWIN: Not Applicable Referrals: PCP,None [Primary Care Provider] - Additional Instructions: I have written an outpatient order for 3 more doses of solu-medrol. Someone should be contacting you to set up a time. Follow up with your doctor about starting your thyroid medication. Please return if you are worse. Sepsis Event Note (ED) - Focused Exam Vital Signs: Vital Signs Temp Pulse Resp BP Pulse Ox 06/11/21 17:25 98.0 F 78 20 146/85 H 100 - My Orders Last 24 Hours: My Active Orders 06/11/21 17:49 Peripheral IV Care [RC] . DIRECTED Sodium Chloride 0.9% [Saline Flush] 10 ml FLUSH ASDIRECTED PRN Peripheral IV Insertion Adult [OM.PC] Routine - Assessment/Plan Last 24 Hours: My Active Orders 06/11/21 17:49 Peripheral IV Care [RC] . DIRECTED Sodium Chloride 0.9% [Saline Flush] 10 ml FLUSH ASDIRECTED PRN Peripheral IV Insertion Adult [OM.PC] Routine
== END 2021-06-11 19:50 | disposition home or self-care (01) ==
LOC: JD.ED 16:49
DX: G35 Multiple sclerosis (principal); Z72.0 Tobacco use
CPT/HCPCS: 36415; 84443; 96365; 99284; J2930; J7050

== ENCOUNTER 2021-10-20 09:19 | Emergency (ER) | payer SELFPAY ==
[2021-10-20 09:35] VITALS: BP 143/79; PULSE 116
== END 2021-10-20 11:00 | disposition home or self-care (01) ==
LOC: JD.ED 09:19
DX: S93.402A Sprain of unspecified ligament of left ankle, initial encounter (principal); X50.1XXA Overexertion from prolonged static or awkward postures, initial encounter
CPT/HCPCS: 73590-26-LT; 73590-LT; 73610-26-LT; 73610-LT; 99283

== ENCOUNTER 2022-07-29 14:18 | Emergency (ER) | payer MEDICAID ==
[2022-07-29 14:44] VITALS: BP 127/67; PULSE 62
[2022-07-29] MEDS ORDERED: Sodium Chloride 0.9% 10 ML Syringe FLUSH PRN (15:04)
[2022-07-29 16:51] LABS: ESTIMATED GFR 78 mL/min (>60)
== END 2022-07-29 18:01 | disposition home or self-care (01) ==
LOC: JD.ED 14:18
DX: G35 Multiple sclerosis (principal); E03.9 Hypothyroidism, unspecified; Z72.0 Tobacco use; Z79.899 Other long term (current) drug therapy
CPT/HCPCS: 36415; 80053; 83735; 84439; 84443; 84481; 85025; 86140; 96365; 99283; J2930; J3490; J7050

== ENCOUNTER 2022-08-17 11:21 | Emergency (ER) | payer MEDICAID ==
[2022-08-17] MEDS ORDERED: LORazepam 1 MG Tab PO ONE (13:33)
[2022-08-17] MEDS ORDERED: OLANZapine 5 MG Tab PO ONE (14:58)
[2022-08-17 18:52] VITALS: BP 135/78; PULSE 93
== END 2022-08-17 19:29 | disposition other institution (70) ==
LOC: JD.ED 11:21
DX: U07.1 COVID-19 (principal); R44.0 Auditory hallucinations; G35 Multiple sclerosis; E03.9 Hypothyroidism, unspecified; F17.210 Nicotine dependence, cigarettes, uncomplicated; Z79.899 Other long term (current) drug therapy
CPT/HCPCS: 36415; 80053; 80143; 80179; 80306; 80307; 81025; 84443; 85007; 85027; 87635; 93005; 99285; A9270; U0002

== ENCOUNTER 2022-10-21 15:13 | Emergency (ER) | payer MEDICAID ==
[2022-10-21] MEDS ORDERED: LORazepam 1 MG Tab PO PRN (15:57)
[2022-10-21] MEDS ORDERED: Gabapentin 600 MG Tab PO ONE (16:19)
[2022-10-21 16:47] VITALS: BP 132/74; PULSE 85
== END 2022-10-21 16:49 | disposition other institution (70) ==
LOC: JD.ED 15:13
DX: R44.0 Auditory hallucinations (principal); E03.9 Hypothyroidism, unspecified; Z72.0 Tobacco use; Z79.899 Other long term (current) drug therapy
CPT/HCPCS: 36415; 80053; 80143; 80179; 80306; 80307; 81025; 84443; 85025; 99284

== ENCOUNTER 2022-11-04 18:58 | Emergency (ER) | payer MEDICAID ==
[2022-11-04 19:07] VITALS: BP 132/79; PULSE 104
[2022-11-04] MEDS ORDERED: Ondansetron 4 MG/2 ML SDV IVPUSH ONE (19:49)
[2022-11-04] MEDS ORDERED: HYDROmorphone 1 MG/ML Syringe IVPUSH STA (19:49)
[2022-11-04] MEDS ORDERED: Sodium Chloride 0.9% 1,000 ML IV SCH (20:00)
[2022-11-04 20:46] LABS: ESTIMATED GFR 89 mL/min (>60)
[2022-11-04] MEDS ORDERED: Iopamidol 612 MG/ML 100 ML Bottle IVPUSH ONE (21:03)
[2022-11-04] MEDS ORDERED: Sodium Chloride 0.9% 10 ML Syringe FLUSH ONE (21:03)
== END 2022-11-04 22:35 | disposition home or self-care (01) ==
LOC: JD.ED 18:58
DX: K59.00 Constipation, unspecified (principal); E03.9 Hypothyroidism, unspecified; E66.9 Obesity, unspecified; Z68.30 Body mass index [BMI] 30.0-30.9, adult; Z86.16 Personal history of COVID-19; Z87.891 Personal history of nicotine dependence; Z79.899 Other long term (current) drug therapy
CPT/HCPCS: 36415; 74177; 76705; 80053; 81001; 81025; 83690; 85007; 85027; 96361; 96374; 96375; 99285; J1170; J2405; J3490; J7030; Q9967; 99284

== ENCOUNTER 2022-12-22 14:31 | Emergency (ER) | payer MEDICAID ==
[2022-12-22 14:39] VITALS: BP 117/59; PULSE 64
== END 2022-12-22 15:01 | disposition home or self-care (01) ==
LOC: JD.ED 14:31
DX: K08.89 Other specified disorders of teeth and supporting structures (principal); E03.9 Hypothyroidism, unspecified; E66.9 Obesity, unspecified; Z68.37 Body mass index [BMI] 37.0-37.9, adult; Z79.899 Other long term (current) drug therapy; Z86.16 Personal history of COVID-19; Z87.891 Personal history of nicotine dependence
CPT/HCPCS: 99282

== ENCOUNTER 2023-02-16 12:19 | Emergency (ER) | payer MEDICAID ==
[2023-02-16] MEDS ORDERED: Lidocaine 1% 10 ML MDV INJECT ONE (12:37)
[2023-02-16 13:42] VITALS: BP 132/77; PULSE 74
== END 2023-02-16 13:39 | disposition home or self-care (01) ==
LOC: JD.ED 12:19
DX: S61.211A Laceration without foreign body of left index finger without damage to nail, initial encounter (principal); E03.9 Hypothyroidism, unspecified; E66.9 Obesity, unspecified; Z86.16 Personal history of COVID-19; Z68.34 Body mass index [BMI] 34.0-34.9, adult; Z79.899 Other long term (current) drug therapy; W27.4XXA Contact with kitchen utensil, initial encounter; Y92.89 Other specified places as the place of occurrence of the external cause; Y99.0 Civilian activity done for income or pay
CPT/HCPCS: 12001; 99282; 99283; J3490

== ENCOUNTER 2023-07-23 10:05 | Emergency (ER) | payer SELFPAY ==
[2023-07-23 10:47] LABS: BASOPHILS PERCENT AUTO 0.4 % (0.0-1.0); EOSINOPHILS PERCENT AUTO 0.1 % (0.0-6.0); HEMATOCRIT 40.4 % (37.0-47.0); HEMOGLOBIN 13.4 gm/dl (12.0-16.0); IMMATURE GRAN ABSOLUTE AUTO 0.02 K/mm3 (0.00-0.05); IMMATURE GRAN PERCENT AUTO 0.3 % (0.0-0.4); LYMPHOCYTES ABSOLUTE AUTO 0.6 K/mm3 (1.0-4.8); LYMPHOCYTES PERCENT AUTO 7.4 % (24.0-44.0); MEAN CORPUSCULAR HGB CONC 33.2 g/dl (32.0-36.0); MEAN CORPUSCULAR VOLUME 90.6 fl (83.0-99.0); MEAN PLATELET VOLUME 9.6 fl (9.4-12.3); MONOCYTES ABSOLUTE AUTO 0.8 K/mm3 (0.0-0.8); MONOCYTES PERCENT AUTO 10.7 % (0.0-8.0); NEUTROPHILS ABSOLUTE AUTO 6.2 K/mm3 (1.8-7.7); NEUTROPHILS PERCENT AUTO 81.1 % (41.0-71.0); PLATELET COUNT,PLT 303 K/mm3 (150-400); RED BLOOD CELL COUNT 4.46 M/mm3 (4.10-5.30); WHITE BLOOD CELL COUNT,WBC 7.58 K/mm3 (3.9-11.3)
[2023-07-23 11:17] LABS: A/G RATIO 1.4 (1-2); ALBUMIN 4.6 g/dl (3.4-5.0); ANION GAP 13.6 (5-15); BILIRUBIN TOTAL 0.8 mg/dL (0.2-1.0); BUN/CREATININE RATIO 7.7 (14-18); CALCIUM 9.9 mg/dL (8.5-10.1); CREATININE 1.3 mg/dL (0.55-1.02); EST CRCL DRUG DOSING (CG) 61.53 mL/min; POTASSIUM,K 4.6 mEq/L (3.5-5.1); PROTEIN TOTAL,TP 7.8 g/dl (6.4-8.2); TSH 57.039 uIU/mL (0.358-3.74)
[2023-07-23 12:22] LABS: BARBITURATE SCREEN,URINE NEGATIVE (CUTOFF=200); BENZODIAZEPINES SCREEN,URINE PRESUMPTIVE POSITIVE (CUTOFF=150); BUPRENORPHINE SCREEN,URINE NEGATIVE (CUTOFF=10); METHADONE SCREEN, URINE NEGATIVE (CUTOFF=200); METHAMPHETAMINES SCREEN, URINE PRESUMPTIVE POSITIVE (CUTOFF=500); OXYCODONE SCREEN,URINE NEGATIVE (CUT0FF=100); PROPOXYPHENE SCREEN,URINE NEGATIVE (CUTOFF=300); THC SCREEN,URINE 20 NG/ML PRESUMPTIVE POSITIVE (CUTOFF=50)
[2023-07-23 12:34] LABS: AMPHETAMINES SCREEN, URINE PRESUMPTIVE POSITIVE (CUTOFF=500)
[2023-07-23] MEDS ORDERED: Levothyroxine 88 MCG Tab PO SCH (13:30)
[2023-07-23] MEDS ORDERED: ClonazePAM 0.5 MG Tab PO ONE (14:37)
[2023-07-23] MEDS ORDERED: Venlafaxine 75 MG Cap.ER PO SCH (14:45)
[2023-07-23] MEDS ORDERED: Haloperidol 5 MG Tab PO ONE (17:19)
[2023-07-23] MEDS ORDERED: Haloperidol Lactate 5 MG/ML SDV IM ONE (17:21)
[2023-07-23 21:48] VITALS: BP 124/74; PULSE 64
[2023-07-24] MEDS ORDERED: Levothyroxine 88 MCG Tab PO SCH (06:00)
== END 2023-07-23 21:49 ==
LOC: JD.ED 10:05
DX: R44.1 Visual hallucinations (principal); R44.0 Auditory hallucinations; R46.89 Other symptoms and signs involving appearance and behavior; E03.9 Hypothyroidism, unspecified; E66.9 Obesity, unspecified; Z68.31 Body mass index [BMI] 31.0-31.9, adult; Z86.16 Personal history of COVID-19; Z79.899 Other long term (current) drug therapy
CPT/HCPCS: 36415; 80053; 80306; 80307; 81025; 84439; 84443; 84479; 85025; 96372; 99285; A9270; J1630; 99284

== ENCOUNTER 2023-08-18 18:12 | Emergency (ER) | payer SELFPAY ==
[2023-08-18 18:37] LABS: BASOPHILS PERCENT AUTO 0.1 % (0.0-1.0); EOSINOPHILS PERCENT AUTO 0.1 % (0.0-6.0); HEMOGLOBIN 12.8 gm/dl (12.0-16.0); IMMATURE GRAN ABSOLUTE AUTO 0.02 K/mm3 (0.00-0.05); IMMATURE GRAN PERCENT AUTO 0.3 % (0.0-0.4); LYMPHOCYTES ABSOLUTE AUTO 0.3 K/mm3 (1.0-4.8); MEAN CORPUSCULAR HEMOGLOBIN 30.5 pg (28.0-32.0); MEAN CORPUSCULAR HGB CONC 33.7 g/dl (32.0-36.0); MEAN CORPUSCULAR VOLUME 90.7 fl (83.0-99.0); MEAN PLATELET VOLUME 9.2 fl (9.4-12.3); MONOCYTES ABSOLUTE AUTO 0.6 K/mm3 (0.0-0.8); MONOCYTES PERCENT AUTO 8.2 % (0.0-8.0); NEUTROPHILS ABSOLUTE AUTO 6.1 K/mm3 (1.8-7.7); NEUTROPHILS PERCENT AUTO 87.3 % (41.0-71.0); PLATELET COUNT,PLT 318 K/mm3 (150-400); RED BLOOD CELL COUNT 4.19 M/mm3 (4.10-5.30); WHITE BLOOD CELL COUNT,WBC 6.99 K/mm3 (3.9-11.3)
[2023-08-18] MEDS ORDERED: LORazepam 1 MG Tab PO ONE (19:06)
[2023-08-18 19:09] LABS: A/G RATIO 1.3 (1-2); ALANINE AMINOTRANSFERASE,ALT 18 U/L (14-59); ALBUMIN 4.1 g/dl (3.4-5.0); ALKALINE PHOSPHATASE 63 U/L (46-116); ANION GAP 14.7 (5-15); ASPARTATE AMNIOTRANSFERASE,AST 16 U/L (15-37); BILIRUBIN TOTAL 0.5 mg/dL (0.2-1.0); BLOOD UREA NITROGEN,BUN 13 mg/dL (7-18); BUN/CREATININE RATIO 10.8 (14-18); CALCIUM 9.3 mg/dL (8.5-10.1); CARBON DIOXIDE,CO2 25 mEq/L (21-32); CHLORIDE,CL 109 mEq/L (98-107); CREATININE 1.2 mg/dL (0.55-1.02); EST CRCL DRUG DOSING (CG) 66.66 mL/min; ESTIMATED GFR 62 mL/min (>60); GLUCOSE RANDOM 111 mg/dL (70-99); POTASSIUM,K 3.7 mEq/L (3.5-5.1); PROTEIN TOTAL,TP 7.2 g/dl (6.4-8.2); SODIUM,NA 145 mEq/L (136-145)
[2023-08-18 19:11] LABS: ACETAMINOPHEN 0 ug/mL (10-30); HCG QUANTITATIVE < 1.0 mIU/mL
[2023-08-18 19:51] LABS: BARBITURATE SCREEN,URINE NEGATIVE (CUTOFF=200); BENZODIAZEPINES SCREEN,URINE NEGATIVE (CUTOFF=150); BUPRENORPHINE SCREEN,URINE NEGATIVE (CUTOFF=10); METHADONE SCREEN, URINE NEGATIVE (CUTOFF=200); METHAMPHETAMINES SCREEN, URINE PRESUMPTIVE POSITIVE (CUTOFF=500); OXYCODONE SCREEN,URINE NEGATIVE (CUT0FF=100); THC SCREEN,URINE 20 NG/ML PRESUMPTIVE POSITIVE (CUTOFF=50)
[2023-08-18 19:53] LABS: AMPHETAMINES SCREEN, URINE PRESUMPTIVE POSITIVE (CUTOFF=500)
[2023-08-18] MEDS ORDERED: Levothyroxine 88 MCG Tab PO ONE (20:14)
[2023-08-18 22:22] VITALS: BP 129/88; PULSE 83
== END 2023-08-18 22:10 ==
LOC: JD.ED 18:12
DX: F15.10 Other stimulant abuse, uncomplicated (principal); E03.9 Hypothyroidism, unspecified; E66.9 Obesity, unspecified; Z86.16 Personal history of COVID-19; Z79.899 Other long term (current) drug therapy; Z68.32 Body mass index [BMI] 32.0-32.9, adult
CPT/HCPCS: 36415; 73560; 80053; 80143; 80179; 80306; 80307; 84443; 84702; 85025; 93005; 99285; A9270; 93010; 99284

== ENCOUNTER 2023-10-03 20:19 | Emergency (ER) | payer SELFPAY ==
[2023-10-03] MEDS ORDERED: Dextrose 5%-Lactated Ringers 1,000 ML IV SCH (20:45)
[2023-10-03 20:47] LABS: BASOPHILS PERCENT AUTO 0.4 % (0.0-1.0); EOSINOPHILS ABSOLUTE AUTO 0.1 K/mm3 (0.0-0.4); EOSINOPHILS PERCENT AUTO 0.9 % (0.0-6.0); HEMATOCRIT 44.7 % (37.0-47.0); HEMOGLOBIN 15.1 gm/dl (12.0-16.0); IMMATURE GRAN ABSOLUTE AUTO 0.01 K/mm3 (0.00-0.05); IMMATURE GRAN PERCENT AUTO 0.1 % (0.0-0.4); LYMPHOCYTES ABSOLUTE AUTO 1.5 K/mm3 (1.0-4.8); MEAN CORPUSCULAR HGB CONC 33.8 g/dl (32.0-36.0); MEAN CORPUSCULAR VOLUME 88.7 fl (83.0-99.0); MEAN PLATELET VOLUME 10.1 fl (9.4-12.3); MONOCYTES ABSOLUTE AUTO 0.7 K/mm3 (0.0-0.8); MONOCYTES PERCENT AUTO 10.4 % (0.0-8.0); NEUTROPHILS ABSOLUTE AUTO 4.6 K/mm3 (1.8-7.7); NEUTROPHILS PERCENT AUTO 66.2 % (41.0-71.0); PLATELET COUNT,PLT 313 K/mm3 (150-400); RED BLOOD CELL COUNT 5.04 M/mm3 (4.10-5.30)
[2023-10-03] MEDS: Dextrose 5%-Lactated Ringers 1,000 ML ONE ×2 (20:50→20:51)
[2023-10-03 21:14] LABS: HEPATITIS C AB NEGATIVE (NEGATIVE)
[2023-10-03] MEDS ORDERED: traZODone 50 MG Tab PO ONE (21:16)
[2023-10-03 21:32] LABS: A/G RATIO 1.2 (1-2); ALANINE AMINOTRANSFERASE,ALT 28 U/L (14-59); ALBUMIN 4.1 g/dl (3.4-5.0); ALKALINE PHOSPHATASE 63 U/L (46-116); ANION GAP 13.8 (5-15); ASPARTATE AMNIOTRANSFERASE,AST 29 U/L (15-37); BILIRUBIN TOTAL 0.4 mg/dL (0.2-1.0); BLOOD UREA NITROGEN,BUN 8 mg/dL (7-18); BUN/CREATININE RATIO 7.3 (14-18); C-REACTIVE PROTEIN <0.2 mg/dL (<1.0); CALCIUM 9.3 mg/dL (8.5-10.1); CARBON DIOXIDE,CO2 25 mEq/L (21-32); CHLORIDE,CL 104 mEq/L (98-107); CREATININE 1.1 mg/dL (0.55-1.02); ESTIMATED GFR 69 mL/min (>60); GLUCOSE RANDOM 99 mg/dL (70-99); MAGNESIUM 2.1 mg/dL (1.8-2.4); POTASSIUM,K 3.8 mEq/L (3.5-5.1); PROTEIN TOTAL,TP 7.4 g/dl (6.4-8.2); SODIUM,NA 139 mEq/L (136-145); TSH 15.711 uIU/mL (0.358-3.74)
[2023-10-03 21:33] LABS: ACETAMINOPHEN 0 ug/mL (10-30)
[2023-10-03 22:31] LABS: APPEARANCE,URINE CLEAR (Clear); BILIRUBIN,URINE NEGATIVE (Negative); COLOR,URINE YELLOW (Yellow); GLUCOSE,URINE NEGATIVE (Negative); KETONES,URINE NEGATIVE (Negative); LEUKOCYTE ESTERASE,URINE NEGATIVE (Negative); NITRITE,URINE NEGATIVE (Negative); OCCULT BLOOD,URINE NEGATIVE (Negative); PROTEIN,URINE NEGATIVE (Negative); UROBILINOGEN,URINE 0.2 (0.2-1.0)
[2023-10-03 22:49] LABS: BACTERIA,URINE FEW /hpf (FEW); MUCUS,URINE RARE /hpf (FEW); RBC,URINE NOT SEEN /hpf (0-5); WBC,URINE 0-5 /hpf (0-5)
[2023-10-03 22:52] LABS: BARBITURATE SCREEN,URINE NEGATIVE (CUTOFF=200); BENZODIAZEPINES SCREEN,URINE NEGATIVE (CUTOFF=150); BUPRENORPHINE SCREEN,URINE NEGATIVE (CUTOFF=10); METHADONE SCREEN, URINE NEGATIVE (CUTOFF=200); METHAMPHETAMINES SCREEN, URINE PRESUMPTIVE POSITIVE (CUTOFF=500); OXYCODONE SCREEN,URINE NEGATIVE (CUT0FF=100); THC SCREEN,URINE 20 NG/ML PRESUMPTIVE POSITIVE (CUTOFF=50)
[2023-10-03 22:57] LABS: AMPHETAMINES SCREEN, URINE PRESUMPTIVE POSITIVE (CUTOFF=500)
[2023-10-03 23:37] VITALS: BP 120/85; PULSE 80
[2023-10-04 00:04] LABS: C. TRACHOMATIS BY PCR NOT DETECTED; N. GONORRHOEAE BY PCR NOT DETECTED
== END 2023-10-03 23:40 | disposition other institution (70) ==
LOC: JD.ED 20:19
DX: F32.9 Major depressive disorder, single episode, unspecified (principal); F15.920 Other stimulant use, unspecified with intoxication, uncomplicated; E03.9 Hypothyroidism, unspecified; Z79.899 Other long term (current) drug therapy
CPT/HCPCS: 36415; 80053; 80143; 80306; 80307; 81001; 83735; 84443; 84703; 85025; 86140; 86803; 87449; 87491; 87591; 93005; 96360; 99284; A9270; J7121; 93010; G0433

== ENCOUNTER 2023-10-11 16:08 | Emergency (ER) | payer SELFPAY ==
[2023-10-11 16:14] VITALS: BP 120/66; PULSE 128
[2023-10-11] MEDS ORDERED: Sodium Chloride 0.9% 1,000 ML IV SCH ×3 (16:45→22:30)
[2023-10-11 16:57] LABS: BASOPHILS PERCENT AUTO 0.4 % (0.0-1.0); EOSINOPHILS PERCENT AUTO 0.2 % (0.0-6.0); HEMATOCRIT 42.4 % (37.0-47.0); HEMOGLOBIN 14.4 gm/dl (12.0-16.0); IMMATURE GRAN ABSOLUTE AUTO 0.01 K/mm3 (0.00-0.05); IMMATURE GRAN PERCENT AUTO 0.2 % (0.0-0.4); LYMPHOCYTES PERCENT AUTO 17.4 % (24.0-44.0); MEAN CORPUSCULAR VOLUME 88.3 fl (83.0-99.0); MEAN PLATELET VOLUME 9.8 fl (9.4-12.3); MONOCYTES ABSOLUTE AUTO 0.6 K/mm3 (0.0-0.8); MONOCYTES PERCENT AUTO 9.9 % (0.0-8.0); NEUTROPHILS ABSOLUTE AUTO 4.1 K/mm3 (1.8-7.7); NEUTROPHILS PERCENT AUTO 71.9 % (41.0-71.0); PLATELET COUNT,PLT 278 K/mm3 (150-400); WHITE BLOOD CELL COUNT,WBC 5.68 K/mm3 (3.9-11.3)
[2023-10-11 17:19] LABS: A/G RATIO 1.4 (1-2); ALANINE AMINOTRANSFERASE,ALT 21 U/L (14-59); ALBUMIN 4.3 g/dl (3.4-5.0); ALKALINE PHOSPHATASE 63 U/L (46-116); ANION GAP 20.1 (5-15); ASPARTATE AMNIOTRANSFERASE,AST 22 U/L (15-37); BILIRUBIN TOTAL 0.8 mg/dL (0.2-1.0); BLOOD UREA NITROGEN,BUN 11 mg/dL (7-18); CALCIUM 9.7 mg/dL (8.5-10.1); CARBON DIOXIDE,CO2 22 mEq/L (21-32); CHLORIDE,CL 104 mEq/L (98-107); EST CRCL DRUG DOSING (CG) 79.99 mL/min; ESTIMATED GFR 78 mL/min (>60); GLUCOSE RANDOM 135 mg/dL (70-99); POTASSIUM,K 3.1 mEq/L (3.5-5.1); PROTEIN TOTAL,TP 7.4 g/dl (6.4-8.2); SODIUM,NA 143 mEq/L (136-145); TSH 47.358 uIU/mL (0.358-3.74)
[2023-10-11 17:20] LABS: ACETAMINOPHEN 0 ug/mL (10-30); HCG QUANTITATIVE < 1.0 mIU/mL
[2023-10-11] MEDS ORDERED: Potassium Chloride 20 MEQ Tab.ER PO ONE (18:24)
[2023-10-11 19:31] LABS: CORONAVIRUS COVID-19 NAA NEGATIVE (NEGATIVE); INFLUENZA A NAA NEGATIVE (NEGATIVE)
[2023-10-11 20:56] LABS: BARBITURATE SCREEN,URINE NEGATIVE (CUTOFF=200); BENZODIAZEPINES SCREEN,URINE NEGATIVE (CUTOFF=150); BUPRENORPHINE SCREEN,URINE NEGATIVE (CUTOFF=10); METHADONE SCREEN, URINE NEGATIVE (CUTOFF=200); METHAMPHETAMINES SCREEN, URINE PRESUMPTIVE POSITIVE (CUTOFF=500); OXYCODONE SCREEN,URINE NEGATIVE (CUT0FF=100); THC SCREEN,URINE 20 NG/ML PRESUMPTIVE POSITIVE (CUTOFF=50)
[2023-10-11 21:05] LABS: AMPHETAMINES SCREEN, URINE PRESUMPTIVE POSITIVE (CUTOFF=500)
[2023-10-11 21:22] LABS: APPEARANCE,URINE CLEAR (Clear); BILIRUBIN,URINE 1+ (Negative); COLOR,URINE DARK YELLOW (Yellow); GLUCOSE,URINE NEGATIVE (Negative); KETONES,URINE 1+ (Negative); LEUKOCYTE ESTERASE,URINE NEGATIVE (Negative); NITRITE,URINE NEGATIVE (Negative); OCCULT BLOOD,URINE NEGATIVE (Negative); PH,URINE 5.5 (5.0-8.0); PROTEIN,URINE TRACE (Negative); UROBILINOGEN,URINE 0.2 (0.2-1.0)
[2023-10-11 21:46] LABS: BACTERIA,URINE MANY /hpf (FEW); MUCUS,URINE FEW /hpf (FEW); RBC,URINE 0-5 /hpf (0-5); WBC,URINE 0-5 /hpf (0-5)
== END 2023-10-12 01:20 ==
LOC: JD.ED 16:08
DX: T43.212A Poisoning by selective serotonin and norepinephrine reuptake inhibitors, intentional self-harm, initial encounter (principal); T43.592A Poisoning by other antipsychotics and neuroleptics, intentional self-harm, initial encounter; T44.6X2A Poisoning by alpha-adrenoreceptor antagonists, intentional self-harm, initial encounter; E03.9 Hypothyroidism, unspecified; F19.10 Other psychoactive substance abuse, uncomplicated; E87.6 Hypokalemia; E66.9 Obesity, unspecified; Z20.822 Contact with and (suspected) exposure to COVID-19; Z86.16 Personal history of COVID-19; Z79.899 Other long term (current) drug therapy
CPT/HCPCS: 0240U; 36415; 80053; 80143; 80179; 80306; 80307; 81001; 84439; 84443; 84702; 85025; 93005; 96360; 96361; 99285; A9270; J7030; 93010

== ENCOUNTER 2024-03-07 20:35 | Emergency (ER) | payer SELFPAY ==
[2024-03-07 20:49] VITALS: BP 117/73; PULSE 81
[2024-03-07] MEDS: Amoxicillin/Clavulanate K 875-125 MG Tab PO ONE (21:36)
== END 2024-03-07 21:38 | disposition home or self-care (01) ==
LOC: JD.ED 20:35
DX: K04.7 Periapical abscess without sinus (principal); Z32.02 Encounter for pregnancy test, result negative; Z79.899 Other long term (current) drug therapy; Z86.16 Personal history of COVID-19
CPT/HCPCS: 81025; 99283; A9270

== ENCOUNTER 2024-03-14 02:55 | Emergency (ER) | payer MEDICAID ==
[2024-03-14 03:07] VITALS: BP 106/78; PULSE 106
== END 2024-03-14 03:25 | disposition home or self-care (01) ==
LOC: JD.ED 02:55
DX: H57.9 Unspecified disorder of eye and adnexa (principal); E66.9 Obesity, unspecified; Z86.16 Personal history of COVID-19; Z68.29 Body mass index [BMI] 29.0-29.9, adult
CPT/HCPCS: 99282

== ENCOUNTER 2024-04-03 01:35 | Emergency (ER) | payer MEDICAID ==
[2024-04-03 01:53] VITALS: BP 142/100; PULSE 97
== END 2024-04-03 02:45 | disposition left against medical advice (07) ==
LOC: JD.ED 01:35
DX: Z53.21 Procedure and treatment not carried out due to patient leaving prior to being seen by health care provider (principal)

== ENCOUNTER 2024-11-11 13:59 | Emergency (ER) | payer MEDICAID ==
[2024-11-11 14:11] VITALS: BP 141/90; PULSE 93
== END 2024-11-11 15:55 | disposition home or self-care (01) ==
LOC: JD.ED 13:59
DX: T74.21XA Adult sexual abuse, confirmed, initial encounter (principal); F15.10 Other stimulant abuse, uncomplicated; Z65.8 Other specified problems related to psychosocial circumstances; Y07.9 Unspecified perpetrator of maltreatment and neglect
CPT/HCPCS: 99284

== ENCOUNTER 2024-11-28 13:16 | Emergency (ER) | payer MEDICAID ==
[2024-11-28] MEDS: Acetaminophen 325 MG Tab PO ONE (15:39)
[2024-11-28 16:34] LABS: BASOPHILS ABSOLUTE AUTO 0.1 K/mm3 (0.0-0.2); BASOPHILS PERCENT AUTO 0.8 % (0.0-1.0); EOSINOPHILS ABSOLUTE AUTO 0.1 K/mm3 (0.0-0.4); HEMATOCRIT 39.6 % (37.0-47.0); IMMATURE GRAN ABSOLUTE AUTO 0.01 K/mm3 (0.00-0.05); IMMATURE GRAN PERCENT AUTO 0.2 % (0.0-0.4); LYMPHOCYTES ABSOLUTE AUTO 1.9 K/mm3 (1.0-4.8); MEAN CORPUSCULAR HEMOGLOBIN 28.8 pg (28.0-32.0); MEAN CORPUSCULAR HGB CONC 32.3 g/dl (32.0-36.0); MEAN PLATELET VOLUME 9.8 fl (9.4-12.3); MONOCYTES ABSOLUTE AUTO 0.5 K/mm3 (0.0-0.8); MONOCYTES PERCENT AUTO 8.1 % (0.0-8.0); NEUTROPHILS ABSOLUTE AUTO 3.7 K/mm3 (1.8-7.7); NEUTROPHILS PERCENT AUTO 58.9 % (41.0-71.0); PLATELET COUNT,PLT 339 K/mm3 (150-400); RED BLOOD CELL COUNT 4.45 M/mm3 (4.10-5.30)
[2024-11-28 16:37] LABS: HEMOGLOBIN 12.8 gm/dl (12.0-16.0)
[2024-11-28 16:37] LABS: APPEARANCE,URINE CLEAR (Clear); BILIRUBIN,URINE NEGATIVE (Negative); COLOR,URINE YELLOW (Yellow); GLUCOSE,URINE NEGATIVE (Negative); KETONES,URINE TRACE (Negative); LEUKOCYTE ESTERASE,URINE NEGATIVE (Negative); NITRITE,URINE NEGATIVE (Negative); OCCULT BLOOD,URINE NEGATIVE (Negative); PROTEIN,URINE 2+ (Negative)
[2024-11-28 16:46] LABS: BACTERIA,URINE FEW /hpf (FEW); EPITHELIAL CELLS,URINE 0-5 /hpf (0-5); FINE GRANULAR CASTS,URINE 0-5 /lpf (0-5); MUCUS,URINE MODERATE /hpf (FEW); RBC,URINE 0-5 /hpf (0-5); WBC,URINE 0-5 /hpf (0-5)
[2024-11-28 16:47] LABS: CALCIUM OXALATE CRYSTALS,URINE RARE
[2024-11-28 17:07] LABS: A/G RATIO 1.3 (1-2); ALBUMIN 3.6 g/dl (3.4-5.0); ANION GAP 7.9 (5-15); BILIRUBIN TOTAL 0.4 mg/dL (0.2-1.0); BUN/CREATININE RATIO 7.8 (14-18); CALCIUM 8.8 mg/dL (8.5-10.1); CREATININE 0.9 mg/dL (0.55-1.02); EST CRCL DRUG DOSING (CG) 87.27 mL/min; POTASSIUM,K 3.9 mEq/L (3.5-5.1); PROTEIN TOTAL,TP 6.4 g/dl (6.4-8.2)
[2024-11-28 18:50] LABS: BARBITURATE SCREEN,URINE NEGATIVE (CUTOFF=200); BENZODIAZEPINES SCREEN,URINE NEGATIVE (CUTOFF=150); BUPRENORPHINE SCREEN,URINE NEGATIVE (CUTOFF=10); METHADONE SCREEN, URINE NEGATIVE (CUTOFF=200); METHAMPHETAMINES SCREEN, URINE PRESUMPTIVE POSITIVE (CUTOFF=500); OXYCODONE SCREEN,URINE NEGATIVE (CUT0FF=100); THC SCREEN,URINE 20 NG/ML PRESUMPTIVE POSITIVE (CUTOFF=50)
[2024-11-28 19:00] LABS: AMPHETAMINES SCREEN, URINE PRESUMPTIVE POSITIVE (CUTOFF=500)
[2024-11-28] MEDS: QUEtiapine 25 MG Tab PO SCH (19:36)
[2024-11-28] MEDS: LORazepam 2 MG/ML SDV IM ONE (19:37)
[2024-11-28 23:10] VITALS: BP 98/56; PULSE 66
== END 2024-11-28 23:30 | disposition other institution (70) ==
LOC: JD.ED 13:16 → EEVIPCON 13:16 → JD.ED 23:30
DX: F20.9 Schizophrenia, unspecified (principal); F19.10 Other psychoactive substance abuse, uncomplicated; E66.9 Obesity, unspecified; Z68.26 Body mass index [BMI] 26.0-26.9, adult
CPT/HCPCS: 36415; 80053; 80143; 80179; 80306; 80307; 81001; 83735; 84703; 85025; 96372; 99285; A9270-GY; J2060